=== PATIENT | female | born 1955 | race Caucasian/White ===

== ENCOUNTER → 2025-03-21 | Outpatient (REF) ==
[~2025-03-21] MED LIST: ASPI325T58 PO; ATOR40TA75 PO; BENA-8 PO; CALC1TAB21 PO; CYCL-707 PO; FISH100049 PO; FISH10005 PO; HYDR-2541 PO; METF10004 PO; POTA80TA PO; TOPR50TA PO; VITA500C24 PO; coq 10 PO
== END ==
LOC: M LABCFH 13:20
DX: N39.0 Urinary tract infection, site not specified (principal)

== ENCOUNTER 2025-05-19 10:51 | Inpatient (IN) | payer BC, MEDICARE ==
[~2025-05-19] VITALS: Ht 167.6 cm; Wt 107.3 kg
[~2025-05-19 10:51] MED LIST changes: -ALLO100T PO; -AMIO200T54 PO; -ASPI81TA26 PO; -BENA40TA PO; -CO Q100C PO; -D3 S1CAP PO; -ELIQ2.5T PO; -ELIQ5TAB PO; -FISH1CAP26 PO; -LASI20TA3 PO; -MAGN400T33 PO; -METO1TAB7 PO; -METO1TAB87 PO; -POTA99CA2 PO; -SEMA7TAB2 PO
[2025-05-19 15:33] VITALS: BP 111/53; TEMP 98; O2SAT 94
[2025-05-19 15:54] LABS: BASO # 0.1 10^3/uL (0.0-0.2); BASO % 0.2 % (0.0-1.0); EOS # 0.0 10^3/uL (0.0-0.5); EOS % 0.1 % (0.0-3.0); LYMPH # 1.1 10^3/uL (1.5-5.0); LYMPH % 3.9 % (24.0-44.0); MONO # 0.7 10^3/uL (0.0-0.8); MONO % 2.3 % (2.0-8.0); NEUTROPHILS # 26.3 10^3/uL (1.5-8.5); NEUTROPHILS % 91.8 % (36.0-66.0); PLATELET COUNT, AUTOMATED 343 10^3/uL (150-450)
[2025-05-19 16:00] VITALS: BP 116/53; O2SAT 99
[2025-05-19] MEDS: LR 1,000 ML IV SCH (16:19)
[2025-05-19 16:28] LABS: ALT/SGPT 33.0 U/L (7.0-40); AST/SGOT 35.0 U/L (<34); CALCIUM LEVEL 7.2 MG/DL (8.3-10.6); CARBON DIOXIDE LEVEL 16.0 MMOL/L (20-31); CHLORIDE LEVEL 92.0 MMOL/L (98-107); CREATININE FOR GFR 8.08 MG/DL (0.55-1.30); GLOMERULAR FILTRATION RATE 4.9 (>39); MAGNESIUM LEVEL 2.0 MG/DL (1.8-2.4); PHOSPHORUS LEVEL 9.0 MG/DL (2.4-5.1); POTASSIUM SERUM 5.5 MMOL/L (3.5-5.1); SODIUM LEVEL 124.0 MMOL/L (136-145)
[2025-05-19 16:30] VITALS: BP 107/53; O2SAT 97
[2025-05-19] MEDS ORDERED: BENA40TA PO (16:40)
[2025-05-19] MEDS ORDERED: GLUCAGON INJ 1 MG VIAL SC PRN (16:40)
[2025-05-19] MEDS ORDERED: FISH1CAP26 PO (16:40)
[2025-05-19] MEDS ORDERED: ELIQ5TAB PO (16:40)
[2025-05-19] MEDS ORDERED: LASI20TA3 PO (16:40)
[2025-05-19] MEDS ORDERED: GLUCOSE 4 GM CHEW PO PRN (16:40)
[2025-05-19] MEDS ORDERED: DEXTROSE 50% 50 ML SYRINGE IV PRN (16:40)
[2025-05-19] MEDS ORDERED: POTA99CA2 PO (16:40)
[2025-05-19] MEDS ORDERED: ALLO100T PO (16:40)
[2025-05-19] MEDS ORDERED: D3 S1CAP PO (16:40)
[2025-05-19] MEDS ORDERED: ASPI81TA26 PO (16:40)
[2025-05-19] MEDS ORDERED: METO1TAB7 PO (16:40)
[2025-05-19] MEDS ORDERED: SEMA7TAB2 PO (16:40)
[2025-05-19] MEDS ORDERED: CO Q100C PO (16:40)
[2025-05-19] MEDS ORDERED: AMIO200T54 PO (16:40)
[2025-05-19] MEDS ORDERED: HOME MED LIST COMPLETE! XX SCH (16:45)
[2025-05-19 17:00] VITALS: BP 108/50; O2SAT 97
[2025-05-19 17:19] LABS: APPEARANCE, URINE CLOUDY (CLEAR); BACTERIA, URINE AUTO 3+ (NEGATIVE); BILIRUBIN, URINE AUTO NEGATIVE (NEGATIVE); BLOOD, URINE BLOOD 3+ (NEGATIVE); GLUCOSE, URINE (UA) AUTO NEGATIVE (NEGATIVE); KETONE, URINE AUTO NEGATIVE (NEGATIVE); LEUKOCYTE ESTERASE, URINE AUTO 3+ (NEGATIVE); MUCUS, URINE SMALL (NEGATIVE); NITRITE, URINE AUTO NEGATIVE (NEGATIVE); PROTEIN, URINE AUTO 1+ mg/dL (NEGATIVE); RBC, URINE AUTO 63 /HPF (0-3); SPECIFIC GRAVITY URINE AUTO 1.009 (1.002-1.035); SQUAMOUS EPITHELIAL CELL UR AU 0 /HPF (0-6); UROBILINOGEN, URINE AUTO 0.2 mg/dL (0.0-2.0); WBC, URINE AUTO TNTC /HPF (0-3)
[2025-05-19] MEDS: INSULIN LISPRO (NovoLOG) PER UNIT SC SCH ×2 (17:30→20:01)
[2025-05-19] MEDS: PATIROMER SORBITEX CALCIUM 8.4GM POWDER PACKET PO ONE (17:35)
[2025-05-19 17:48] LABS: ANTI-STREPTOLYSIN O QUANT 151.8 IU/ML (<195)
[2025-05-19 17:52] LABS: INR 1.74
[2025-05-19 18:00] VITALS: BP 116/64; O2SAT 97
[2025-05-19 20:00] VITALS: BP 104/51; TEMP 97.2; O2SAT 98
[2025-05-19] MEDS: APIXABAN 2.5 MG TAB PO SCH (20:07)
[2025-05-19] MEDS: SODIUM BICARBONATE 75 MEQ in NS 0.45% 1,000 ML IV SCH (20:07)
[2025-05-19] MEDS: METOPROLOL TART 25 MG TABLET PO SCH (20:07)
[2025-05-19 20:36] LABS: TOTAL PROTEIN,RANDOM URINE 33.3 MG/DL (0.0-14.0)
[2025-05-19 22:51] LABS: CALCIUM LEVEL 7.5 MG/DL (8.3-10.6); CARBON DIOXIDE LEVEL 19.0 MMOL/L (20-31); CHLORIDE LEVEL 92.0 MMOL/L (98-107); CREATININE FOR GFR 7.9 MG/DL (0.55-1.30); GLOMERULAR FILTRATION RATE 5.1 (>39); PHOSPHORUS LEVEL 8.6 MG/DL (2.4-5.1); POTASSIUM SERUM 4.4 MMOL/L (3.5-5.1); SODIUM LEVEL 127.0 MMOL/L (136-145)
[2025-05-20] VITALS (7 sets, daily range): BP systolic 101–136; BP diastolic 49–61; TEMP 97.2–98.7; O2SAT 94–97
[2025-05-20 05:30] LABS: BASO # 0.1 10^3/uL (0.0-0.2); BASO % 0.2 % (0.0-1.0); EOS # 0.0 10^3/uL (0.0-0.5); EOS % 0.2 % (0.0-3.0); LYMPH # 0.9 10^3/uL (1.5-5.0); LYMPH % 3.5 % (24.0-44.0); MONO # 0.7 10^3/uL (0.0-0.8); MONO % 2.7 % (2.0-8.0); NEUTROPHILS # 22.8 10^3/uL (1.5-8.5); NEUTROPHILS % 91.9 % (36.0-66.0); PLATELET COUNT, AUTOMATED 297 10^3/uL (150-450)
[2025-05-20 06:37] LABS: ALT/SGPT 25.0 U/L (7.0-40); AST/SGOT 14.0 U/L (<34); CALCIUM LEVEL 7.5 MG/DL (8.3-10.6); CARBON DIOXIDE LEVEL 18.0 MMOL/L (20-31); CHLORIDE LEVEL 93.0 MMOL/L (98-107); CREATININE FOR GFR 7.1 MG/DL (0.55-1.30); GLOMERULAR FILTRATION RATE 5.8 (>39); MAGNESIUM LEVEL 1.9 MG/DL (1.8-2.4); PHOSPHORUS LEVEL 8.0 MG/DL (2.4-5.1); POTASSIUM SERUM 4.3 MMOL/L (3.5-5.1); SODIUM LEVEL 128.0 MMOL/L (136-145)
[2025-05-20] MEDS: SEVELAMER *CARBONate* 800 MG TAB PO SCH (08:00)
[2025-05-20] MEDS: ASPIRIN 81 MG ENTERIC TABLET PO SCH (08:51)
[2025-05-20] MEDS: PANTOPRAZOLE 40MG TAB PO SCH (08:51)
[2025-05-20] MEDS: cefTRIAXone SOD 2 GM in DEXTROSE 5% (D5W) ADV/MINI-BAG 50 ML IV SCH (11:45)
[2025-05-21 04:23] VITALS: BP 115/57; TEMP 98; O2SAT 93
[2025-05-21 06:20] LABS: IRON (FE) 33.0 UG/DL (50-170); PERCENT SATURATION 14.9 % (13.2-45.0)
[2025-05-21 07:41] VITALS: BP 130/58; TEMP 97.9; O2SAT 95
[2025-05-21 10:52] LABS: CALCIUM LEVEL 7.6 MG/DL (8.3-10.6); CARBON DIOXIDE LEVEL 25.0 MMOL/L (20-31); CHLORIDE LEVEL 101.0 MMOL/L (98-107); CREATININE FOR GFR 4.47 MG/DL (0.55-1.30); GLOMERULAR FILTRATION RATE 10.1 (>39); PHOSPHORUS LEVEL 5.1 MG/DL (2.4-5.1); POTASSIUM SERUM 3.6 MMOL/L (3.5-5.1); SODIUM LEVEL 137.0 MMOL/L (136-145)
[2025-05-21 10:52] LABS: MAGNESIUM LEVEL 1.9 MG/DL (1.8-2.4)
[2025-05-21 12:03] VITALS: BP 122/60; TEMP 96.3; O2SAT 95
[2025-05-21] MEDS: FERRIC CARBOXYMALTOSE INJ 750 MG, VIAL MATE ADAPTER 1 EACH in NS 100 ML IV ONE (12:25)
[2025-05-21 15:47] VITALS: BP 121/58; TEMP 97.8; O2SAT 94
[2025-05-21 20:17] VITALS: BP 128/59; TEMP 97.5; O2SAT 97
[2025-05-21 23:17] LABS: PROTEIN, TOTAL SO 6.4 g/dL (6.1-8.1)
[2025-05-22 03:39] VITALS: BP 127/58; TEMP 97.9; O2SAT 95
[2025-05-22 05:29] LABS: PLATELET COUNT, AUTOMATED 288 10^3/uL (150-450)
[2025-05-22 05:51] LABS: CALCIUM LEVEL 7.9 MG/DL (8.3-10.6); CARBON DIOXIDE LEVEL 24.0 MMOL/L (20-31); CHLORIDE LEVEL 103.0 MMOL/L (98-107); CREATININE FOR GFR 3.37 MG/DL (0.55-1.30); GLOMERULAR FILTRATION RATE 14.1 (>39); MAGNESIUM LEVEL 1.5 MG/DL (1.8-2.4); PHOSPHORUS LEVEL 4.6 MG/DL (2.4-5.1); POTASSIUM SERUM 3.7 MMOL/L (3.5-5.1); SODIUM LEVEL 141.0 MMOL/L (136-145)
[2025-05-22 06:30] VITALS: BP 130/61; TEMP 97.1; O2SAT 96
[2025-05-22] MEDS: MAG SULF 1GM/100ML (MAG RUN) 1 GM in IV 1 EA IV ONE (06:34)
[2025-05-22] MEDS: POTASSIUM CHLORIDE 10MEQ SR TABLET PO SCH (10:13)
[2025-05-22] MEDS: MAGNESIUM OXIDE 400 MG TAB PO SCH (10:14)
[2025-05-22] MEDS: FUROSEMIDE 100 MG/10 ML VIAL IV SCH (10:17)
[2025-05-22 12:02] LABS: COMPLEMENT C4 45 mg/dL (15-57)
[2025-05-22 17:12] VITALS: BP 131/59; TEMP 97.9; O2SAT 97
[2025-05-22 19:30] VITALS: BP 129/61; TEMP 97.5; O2SAT 97
[2025-05-23 03:22] VITALS: BP 136/67; TEMP 97.2; O2SAT 97
[2025-05-23 05:07] LABS: PLATELET COUNT, AUTOMATED 303 10^3/uL (150-450)
[2025-05-23 05:29] LABS: CALCIUM LEVEL 8.4 MG/DL (8.3-10.6); CARBON DIOXIDE LEVEL 27.0 MMOL/L (20-31); CHLORIDE LEVEL 102.0 MMOL/L (98-107); CREATININE FOR GFR 2.62 MG/DL (0.55-1.30); GLOMERULAR FILTRATION RATE 19.1 (>39); MAGNESIUM LEVEL 1.5 MG/DL (1.8-2.4); PHOSPHORUS LEVEL 3.7 MG/DL (2.4-5.1); POTASSIUM SERUM 3.8 MMOL/L (3.5-5.1); SODIUM LEVEL 141.0 MMOL/L (136-145)
[2025-05-23] MEDS: MAGNESIUM OXIDE 400 MG TAB PO SCH (07:46)
[2025-05-23 08:15] VITALS: BP 137/62; TEMP 97.5; O2SAT 97
[2025-05-23 08:53] LABS: ALBUMIN SO 2.6 g/dL (3.8-4.8); ALPHA 1 GLOBULINS SO 0.7 g/dL (0.2-0.3); ALPHA 2 GLOBULINS SO 1.2 g/dL (0.5-0.9); BETA 2 GLOBULIN SO 0.6 g/dL (0.2-0.5); BETA GLOBULIN SO 0.4 g/dL (0.4-0.6); GAMMA GLOBULINS SO 1.0 g/dL (0.8-1.7); SPEP IFE ABN PROTEIN BAND 1 0.3 g/dL (NONE DETECTED)
[2025-05-23 10:13] VITALS: BP 137/62
[2025-05-23] MEDS ORDERED: ELIQ2.5T PO (11:41)
[2025-05-23] MEDS ORDERED: MAGN400T33 PO (11:41)
[2025-05-23] MEDS ORDERED: METO1TAB87 PO (11:41)
[2025-05-23 12:25] VITALS: BP 153/67; TEMP 97.2; O2SAT 95
[2025-05-23 16:47] LABS: COMPLEMENT TOTAL (CH50) > 60 U/mL (31-60)
[2025-05-24] MEDS ORDERED: CEFPODOXIME PROXETIL 200 MG TABLET PO SCH (09:00)
== END 2025-05-23 13:35 | disposition home health service (06) | DRG 469 ==
LOC: M ICU 15:21 → M PCU 05-20 21:06
PROVIDERS: ADMIT Internal Medicine; ATTEND Student in an Organized Health Care Education/Training Program
DX: N17.9 Acute kidney failure, unspecified (principal); E11.22 Type 2 diabetes mellitus with diabetic chronic kidney disease; N39.0 Urinary tract infection, site not specified; E83.42 Hypomagnesemia; E87.1 Hypo-osmolality and hyponatremia; I48.91 Unspecified atrial fibrillation; I12.9 Hypertensive chronic kidney disease with stage 1 through stage 4 chronic kidney disease, or unspecified chronic kidney disease; R04.0 Epistaxis; B96.1 Klebsiella pneumoniae [K. pneumoniae] as the cause of diseases classified elsewhere; N18.9 Chronic kidney disease, unspecified; E83.39 Other disorders of phosphorus metabolism; D50.9 Iron deficiency anemia, unspecified; Z79.01 Long term (current) use of anticoagulants; E86.0 Dehydration; E78.5 Hyperlipidemia, unspecified; I25.10 Atherosclerotic heart disease of native coronary artery without angina pectoris; E66.9 Obesity, unspecified; I87.8 Other specified disorders of veins; Z79.899 Other long term (current) drug therapy; Z79.82 Long term (current) use of aspirin

== ENCOUNTER → 2025-05-19 | Outpatient (REF) ==
[~2025-05-19] MED LIST changes: +ALLO100T PO; +AMIO200T54 PO; +ASPI81TA26 PO; +BENA40TA PO; +CO Q100C PO; +D3 S1CAP PO; +ELIQ2.5T PO; +ELIQ5TAB PO; -FISH10005 PO; +FISH1CAP26 PO; +FISH1CAP38 PO; +LASI20TA3 PO; +MAGN400T33 PO; +METO1TAB7 PO; +METO1TAB87 PO; +POTA99CA2 PO; +SEMA7TAB2 PO
== END ==
LOC: M CFLAB 09:46
DX: N39.0 Urinary tract infection, site not specified (principal)